=== PATIENT | male | born 1940 | race Caucasian/White ===

== ENCOUNTER 2018-09-06 12:34 | Outpatient (RCR) | payer MEDICARE, SELFPAY ==
[2018-09-06 13:08] VITALS: BP 107/70; PULSE 112; RESP 22; TEMP 36; BMI 28.2
--- NOTE | 2018-09-06 17:18 | PCM.WC.HP ---
(1) Ulcer of left ankle Status: Chronic Code(s): L97.329 - Non-pressure chronic ulcer of left ankle with unspecified severity (2) Ulcer of right medial lower extremity Status: Chronic Code(s): L97.819 - Non-pressure chronic ulcer of other part of right lower leg with unspecified severity (3) Ulcer of right ankle Status: Chronic Code(s): L97.319 - Non-pressure chronic ulcer of right ankle with unspecified severity (4) Decubitus ulcer of buttock, stage 2 Status: Chronic Code(s): L89.302 - Pressure ulcer of unspecified buttock, stage 2 History of Present Illness Date of Service: 09/06/18 Chief Complaint: Skin breakdown on bilteral lateral ankles, right medial leg and multiple small breakdowns on buttocks. History of Wound: Patient and his area poor historians. He was hospitalized in [place] and then spent several months in rehab and received dialysis (he no longer is on dialysis). When they returned to [place] after he was discharged. He recently was hospitalized in [facility] for CHF. He refused to go to a prison facility and his has been caring for him at home. His states that he has had the ulcer on right lateral ankle for 3 years, left lateral ankle 1 year, right medial leg 1 year. Past Medical History Past Medical History: Chronic Problems Ulcer of left ankle (Chronic) Ulcer of right medial lower extremity (Chronic) Ulcer of right ankle (Chronic) Decubitus ulcer of buttock, stage 2 (Chronic) Past Medical History: CHF, 3L [place] home O2, was on dialysis last year, 2 cardiac stents and 3 valves replaced, DVT 3 years ago, Lung CA Surgical History: - Allergies/Adverse Reactions: Allergies No Known Allergies Allergy (Verified 09/06/18 14:55) Smoking Status: Former smoker Review of Systems Constitutional: Reports: Malaise, Weakness, Fatigue Cardiovascular: Reports: Edema, - - shortness of breath, on home O2. Denies: Chest Pain Respiratory: Reports: Cough, Shortness of Breath Gastrointestinal: Denies: Vomiting Musculoskeletal: Reports: - - non ambulatory Skin: Reports: Wounds - bilateral lateral ankles, right medial leg, excoriated buttocks - Physical Exam Vital Signs Temp Pulse Resp BP 96.8 F L 112 H 22 H 107/70 09/06/18 13:08 09/06/18 13:08 09/06/18 13:08 09/06/18 13:08 General: Alert, Cooperative, - - Coloring is sallow. He is well dressed but has poor mouth care. He states that he is able to transfer from his wheelchair into bed but he is non ambulatory. HEENT: Atraumatic Oral: Moist Mucosa Lungs: Clear to auscultation, Short of Breath, - - O2-on 3LNC Cardiovascular: Regular rate, Regular Rhythm Abdomen: Soft, Non Tender Extremities: Capillary Refill Less than 3 Seconds, Diminished Peripheral Pulses, Edema - +4 edema Skin: Ulcer/ Wound - ulcers on right lateral ankles, left lateral ankle, righ medial leg and excoriated buttocks. Wound Measurements and Assessment WC - Nurse 1 - General Ulcer Measurement Start: 09/06/18 13:08 Freq: Status: Active Protocol: Activity Type Activity Date Activity User E-Sign Co-Sign Detail Recorded Client Recorded Date Recorded By Document 09/06/18 13:08 MW [id number] 09/06/18 14:06 MW 09/06/18 13:08 Wound Center Nurse 1 [Ulcer Assessment] #7 left buttocck cluster superior -Combined with other wound No -Current Size (cm) - Length 6.0 -Current Size (cm) - Width 1.0 -Current Size (cm) - Depth 0.1 -Total Square Cm 6.00 -Photo Taken No -Epithelialization None Present -Tunneling No -Undermining/Tunneling No -Circular Undermining No -Exudate Amt None Present -Wound Margin Flat & Intact -Granulation Amt None Present (0 %) -Granulation Quality N/A -Slough/Fibrin Yes -Necrosis Amt Large (67-100%) -Necrotic Tissue Type Adherent Slough -Structure Exposed N/A -Texture (Nury-wound Skin Appearance) No Abnormality Assessed -Moisture (Nury-wound Skin Appearance Assessed ) Dry/Scaly -Color (Nury-wound Skin Appearance) Assessed Rubor -Temperature (Nury-wound Skin No Abnormality Appearance) (Pt Warm) -Ulcer Cleansing soap and water -Foul Odor after Cleansing No -Anesthetic Used 4% Lidocaine Solution #6 Right buttock cluster Superior -Combined with other wound No -Current Size (cm) - Length 5.5 -Current Size (cm) - Width 3.5 -Current Size (cm) - Depth 0.1 -Total Square Cm 19.25 -Date of Last Picture (Recall this 09/06/18 field) -Photo Taken Yes -Epithelialization None Present -Tunneling No -Undermining/Tunneling No -Circular Undermining No -Exudate Amt None Present -Wound Margin Flat & Intact -Granulation Amt None Present (0 %) -Granulation Quality N/A -Slough/Fibrin Yes -Necrosis Amt Large (67-100%) -Necrotic Tissue Type Adherent Slough -Structure Exposed N/A -Texture (Nury-wound Skin Appearance) No Abnormality Assessed -Moisture (Nury-wound Skin Appearance Assessed ) Dry/Scaly -Color (Nury-wound Skin Appearance) Assessed Rubor -Temperature (Nury-wound Skin No Abnormality Appearance) (Pt Warm) -Ulcer Cleansing soap and water -Foul Odor after Cleansing No -Anesthetic Used 4% Lidocaine Solution #5 Left Buttock -Combined with other wound No -Current Size (cm) - Length 0.9 -Current Size (cm) - Width 0.7 -Current Size (cm) - Depth 0.1 -Total Square Cm 0.63 -Date of Last Picture (Recall this 09/06/18 field) -Photo Taken Yes -Epithelialization None Present -Tunneling No -Undermining/Tunneling No -Circular Undermining No -Exudate Amt None Present -Wound Margin Flat & Intact -Granulation Amt None Present (0 %) -Granulation Quality N/A -Slough/Fibrin Yes -Necrosis Amt Large (67-100%) -Necrotic Tissue Type Adherent Slough -Structure Exposed N/A -Texture (Nury-wound Skin Appearance) No Abnormality Assessed -Moisture (Nury-wound Skin Appearance Assessed ) Dry/Scaly -Color (Nury-wound Skin Appearance) Assessed Rubor -Temperature (Nury-wound Skin No Abnormality Appearance) (Pt Warm) -Tenderness on Palpation (Nury-wound Yes Skin Appearance) -Ulcer Cleansing soap and water -Foul Odor after Cleansing No -Anesthetic Used 4% Lidocaine Solution #4 right buttock cluster -Combined with other wound No -Current Size (cm) - Length 5.5 -Current Size (cm) - Width 1.0 -Current Size (cm) - Depth 0.1 -Total Square Cm 5.50 -Date of Last Picture (Recall this 09/06/18 field) -Photo Taken Yes -Epithelialization None Present -Tunneling No -Undermining/Tunneling No -Circular Undermining No -Exudate Amt None Present -Wound Margin Flat & Intact -Granulation Amt None Present (0 %) -Granulation Quality N/A -Slough/Fibrin Yes -Necrosis Amt Large (67-100%) -Necrotic Tissue Type Adherent Slough -Structure Exposed N/A -Texture (Nury-wound Skin Appearance) Assessed -Moisture (Nury-wound Skin Appearance Assessed ) Dry/Scaly -Color (Nury-wound Skin Appearance) Assessed Rubor -Temperature (Nury-wound Skin No Abnormality Appearance) (Pt Warm) -Tenderness on Palpation (Nury-wound No Skin Appearance) -Ulcer Cleansing Rinsed/ Irrigated with Saline -Foul Odor after Cleansing No -Anesthetic Used 4% Lidocaine Solution #3 Right Medial LE -Combined with other wound No -Current Size (cm) - Length 1.0 -Current Size (cm) - Width 1.5 -Current Size (cm) - Depth 0.1 -Total Square Cm 1.50 -Date of Last Picture (Recall this 09/06/18 field) -Photo Taken Yes -Epithelialization None Present -Tunneling No -Undermining/Tunneling No -Circular Undermining No -Exudate Amt Medium -Exudate Type Serosanguineous -Wound Margin Flat & Intact -Granulation Amt Medium (34-66%) -Granulation Quality Red -Slough/Fibrin No -Necrosis Amt Small (1-33%) -Necrotic Tissue Type Adherent Slough -Structure Exposed N/A -Texture (Nury-wound Skin Appearance) Assessed Localized Edema -Moisture (Nury-wound Skin Appearance Assessed ) Dry/Scaly -Color (Nury-wound Skin Appearance) Assessed Hemosiderin Staining -Temperature (Nury-wound Skin No Abnormality Appearance) (Pt Warm) -Tenderness on Palpation (Nury-wound No Skin Appearance) -Ulcer Cleansing soap and water -Foul Odor after Cleansing No -Anesthetic Used 4% Lidocaine Solution #2 right malleolus -Combined with other wound No -Current Size (cm) - Length 2.5 -Current Size (cm) - Width 4.0 -Current Size (cm) - Depth 0.2 -Total Square Cm 10.00 -Date of Last Picture (Recall this 09/06/18 field) -Photo Taken Yes -Epithelialization None Present -Tunneling No -Undermining/Tunneling No -Circular Undermining No -Exudate Amt Medium -Exudate Type Serosanguineous -Wound Margin Flat & Intact -Granulation Amt None Present (0 %) -Granulation Quality N/A -Slough/Fibrin Yes -Necrosis Amt Large (67-100%) -Necrotic Tissue Type Adherent Slough -Structure Exposed N/A -Texture (Nury-wound Skin Appearance) Assessed Localized Edema -Moisture (Nury-wound Skin Appearance Assessed ) Dry/Scaly -Color (Nury-wound Skin Appearance) Assessed Hemosiderin Staining -Temperature (Nury-wound Skin No Abnormality Appearance) (Pt Warm) -Tenderness on Palpation (Nury-wound No Skin Appearance) -Ulcer Cleansing soap and water -Foul Odor after Cleansing No -Anesthetic Used 4% Lidocaine Solution #1 Left Malleolus -Combined with other wound No -Current Size (cm) - Length 2.5 -Current Size (cm) - Width 4.0 -Current Size (cm) - Depth 0.2 -Total Square Cm 10.00 -Date of Last Picture (Recall this 09/06/18 field) -Photo Taken Yes -Epithelialization None Present -Tunneling No -Undermining/Tunneling No -Circular Undermining No -Exudate Amt Medium -Exudate Type Serous -Wound Margin Flat & Intact -Granulation Amt None Present (0 %) -Granulation Quality N/A -Slough/Fibrin Yes -Necrosis Amt Large (67-100%) -Necrotic Tissue Type Adherent Slough -Structure Exposed N/A -Texture (Nury-wound Skin Appearance) Assessed Localized Edema -Moisture (Nury-wound Skin Appearance Assessed ) Dry/Scaly -Color (Nury-wound Skin Appearance) Assessed Hemosiderin Staining -Temperature (Nury-wound Skin No Abnormality Appearance) (Pt Warm) -Ulcer Cleansing soap and water -Foul Odor after Cleansing No -Anesthetic Used 4% Lidocaine Solution [Edema Assessment] -Lower Limb Edema Present Yes -Right Calf (cm) 44.0 -Right Ankle (cm) 29.5 -Left Calf (cm) 42.8 -Left Ankle (cm) 26.4 WC - Nurse 2 - General Ulcer CM Notes Start: 09/06/18 13:08 Freq: Status: Active Protocol: Activity Type Activity Date Activity User E-Sign Co-Sign Detail Recorded Client Recorded Date Recorded By Document 09/06/18 14:35 MARCEL [id number] 09/06/18 14:50 MARCEL 09/06/18 14:35 Wound Center Nurse 2 [Procedure/Treatment] #7 left buttocck cluster superior -Correct Patient No -Correct Side, Site, Position No -Correct Procedure No -Procedure Performed No #6 Right buttock cluster Superior -Correct Patient No -Correct Side, Site, Position No -Correct Procedure No -Procedure Performed No #5 Left Buttock -Correct Patient No -Correct Side, Site, Position No -Correct Procedure No -Procedure Performed No #4 right buttock cluster -Correct Patient No -Correct Side, Site, Position No -Correct Procedure No -Procedure Performed No #3 Right Medial LE -Time 14:39 -Correct Patient Yes -Correct Side, Site, Position Yes -Correct Procedure Yes -Procedure Performed Yes -Type of Procedure Debridement -Clinical Debridement Subcutaneous -Post Debridement Size (cm) - Length 1.3 -Post Debridement Size (cm) - Width 1.5 -Post Debridement Size (cm) - Depth 0.2 -Total Square Cm 1.95 -Wound/Ulcer Outcome Not Healed -Ulcer Cleansing Rinsed/ Irrigated with Saline -Foul Odor after Cleansing No -Bioengineered Tissue No -Bleeding Controlled with Pressure -Offloading No -Treatment Response Procedure Tolerated Well #2 right malleolus -Time 14:41 -Correct Patient Yes -Correct Side, Site, Position Yes -Correct Procedure Yes -Procedure Performed Yes -Type of Procedure Debridement -Clinical Debridement Subcutaneous -Post Debridement Size (cm) - Length 2.4 -Post Debridement Size (cm) - Width 3.7 -Post Debridement Size (cm) - Depth 0.3 -Total Square Cm 8.88 -Wound/Ulcer Outcome Not Healed -Ulcer Cleansing Rinsed/ Irrigated with Saline -Foul Odor after Cleansing No -Bioengineered Tissue No -Bleeding Controlled with Pressure -Offloading No -Treatment Response Procedure Tolerated Well #1 Left Malleolus -Time 14:38 -Correct Patient Yes -Correct Side, Site, Position Yes -Correct Procedure Yes -Procedure Performed Yes -Type of Procedure Debridement -Clinical Debridement Subcutaneous -Post Debridement Size (cm) - Length 2.1 -Post Debridement Size (cm) - Width 2.0 -Post Debridement Size (cm) - Depth 0.3 -Total Square Cm 4.20 -Wound/Ulcer Outcome Not Healed -Ulcer Cleansing Rinsed/ Irrigated with Saline -Foul Odor after Cleansing No -Bioengineered Tissue No -Bleeding Controlled with Pressure -Offloading No -Treatment Response Procedure Tolerated Well [See Physician Procedure note for Specifics] Musculoskeletal: Muscle Wasting Neurological: Neuro grossly intact Psych/Mental Status: Normal Affect, Appropriate Debridement Note Post-Debridement Measurements/Treatment WC - Nurse 2 - General Ulcer CM Notes Start: 09/06/18 13:08 Freq: Status: Active Protocol: Activity Type Activity Date Activity User E-Sign Co-Sign Detail Recorded Client Recorded Date Recorded By Document 09/06/18 14:35 [id number] 09/06/18 14:50 09/06/18 14:35 Wound Center Nurse 2 #7 left buttocck cluster superior -Correct Patient No -Correct Side, Site, Position No -Correct Procedure No -Procedure Performed No #6 Right buttock cluster Superior -Correct Patient No -Correct Side, Site, Position No -Correct Procedure No -Procedure Performed No #5 Left Buttock -Correct Patient No -Correct Side, Site, Position No -Correct Procedure No -Procedure Performed No #4 right buttock cluster -Correct Patient No -Correct Side, Site, Position No -Correct Procedure No -Procedure Performed No #3 Right Medial LE -Time 14:39 -Correct Patient Yes -Correct Side, Site, Position Yes -Correct Procedure Yes -Procedure Performed Yes -Type of Procedure Debridement -Clinical Debridement Subcutaneous -Post Debridement Size (cm) - Length 1.3 -Post Debridement Size (cm) - Width 1.5 -Post Debridement Size (cm) - Depth 0.2 -Total Square Cm 1.95 -Wound/Ulcer Outcome Not Healed -Ulcer Cleansing Rinsed/ Irrigated with Saline -Foul Odor after Cleansing No -Bioengineered Tissue No -Bleeding Controlled with Pressure -Offloading No -Treatment Response Procedure Tolerated Well #2 right malleolus -Time 14:41 -Correct Patient Yes -Correct Side, Site, Position Yes -Correct Procedure Yes -Procedure Performed Yes -Type of Procedure Debridement -Clinical Debridement Subcutaneous -Post Debridement Size (cm) - Length 2.4 -Post Debridement Size (cm) - Width 3.7 -Post Debridement Size (cm) - Depth 0.3 -Total Square Cm 8.88 -Wound/Ulcer Outcome Not Healed -Ulcer Cleansing Rinsed/ Irrigated with Saline -Foul Odor after Cleansing No -Bioengineered Tissue No -Bleeding Controlled with Pressure -Offloading No -Treatment Response Procedure Tolerated Well #1 Left Malleolus -Time 14:38 -Correct Patient Yes -Correct Side, Site, Position Yes -Correct Procedure Yes -Procedure Performed Yes -Type of Procedure Debridement -Clinical Debridement Subcutaneous -Post Debridement Size (cm) - Length 2.1 -Post Debridement Size (cm) - Width 2.0 -Post Debridement Size (cm) - Depth 0.3 -Total Square Cm 4.20 -Wound/Ulcer Outcome Not Healed -Ulcer Cleansing Rinsed/ Irrigated with Saline -Foul Odor after Cleansing No -Bioengineered Tissue No -Bleeding Controlled with Pressure -Offloading No -Treatment Response Procedure Tolerated Well Wound debrided: Right lateral ankle Laterality: Right Type of Debridement: Excisional debridement Anesthesia Used: 4% Lidocaine Solution Depth: Down to and including healthy tissue, in the subcutaneous layer Percentage of wound debrided: 100 Instrument Used: 5mm curette Tissue Removed: subcutaneous tissue and slough Severity: Fat Layer Exposed Amount of bleeding with debridement: Mild Bleeding Controlled with: Pressure Patient tolerated procedure well - Additional Wound Wound debrided: Left lateral ankle ulcer Laterality: Left Type of Debridement: Excisional debridement Depth: Down to and including healthy tissue, in the subcutaneous layer Percentage of wound debrided: 100 Instrument Used: 5mm curette Tissue Removed: Subcutaneous tissue and slough Severity: Fat Layer Exposed Amount of bleeding with debridement: Mild Bleeding Controlled with: Pressure Patient tolerated procedure: Patient tolerated procedure well - Additional Wound Wound debrided: Right medial lower leg Laterality: Right Type of Debridement: Excisional debridement Anesthesia Used: 4% Lidocaine Solution Depth: Down to and including healthy tissue, in the subcutaneous layer Percentage of wound debrided: 100 Instrument Used: 5mm curette Tissue Removed: Subcutaneous tissue and slough Severity: Fat Layer Exposed Amount of bleeding with debridement: Mild Bleeding Controlled with: Compression and gauze Patient tolerated procedure: Patient tolerated procedure well Assessment/Plan Assessment: 1. Ulcer of left ankle (Chronic). 2. Ulcer of right medial lower extremity (Chronic). 3. Ulcer of right ankle (Chronic). 4. Decubitus ulcer of buttock, stage 2 (Chronic) Plan: Patient was seen and evaluated in the wound center today. Patient is very frail. Will start daily aquacel silver dressing changes to his bilateral lateral ankle ulcers and right medial leg ulcer. Multiple small partial thickness open areas on buttocks most likely to friction from transferring and incontinence. Will start conservatively with a barrier cream such as aquaphore or A&D ointment. Will consult Palliative care for evaluation for better control of his chronic illnesses. Code Visit Office Visits / Consults: [id number] OV L4 Est - 25 modifier [id number]: [id number] Janet subq tissue 20 sq cm/<
== END 2018-10-02 23:59 ==
LOC: WC 12:34
PROVIDERS: PCP Nurse Practitioner Family; Visit Provider Nurse Practitioner Family
DX: L97.322 Non-pressure chronic ulcer of left ankle with fat layer exposed (principal); L97.312 Non-pressure chronic ulcer of right ankle with fat layer exposed; I50.9 Heart failure, unspecified; Z86.718 Personal history of other venous thrombosis and embolism; Z99.81 Dependence on supplemental oxygen; Z85.118 Personal history of other malignant neoplasm of bronchus and lung; Z87.891 Personal history of nicotine dependence; Z95.2 Presence of prosthetic heart valve; L89.312 Pressure ulcer of right buttock, stage 2
CPT/HCPCS: 11042; 99203; G0463